=== PATIENT | female | born 1990 | race African-American/Black ===

== ENCOUNTER 2018-09-30 14:22 | Emergency (ER) | payer MEDICAID ==
[~2018-09-30] VITALS: Ht 167.6 cm; Wt 72.6 kg
[2018-09-30 14:54] LABS: MICROSCOPIC INDICATED
[2018-09-30 15:02] LABS: CULTURE INDICATED? NO
[2018-09-30 15:04] LABS: BASOPHILS % (AUTO) 1 % (0-1); EOSINOPHILS # (AUTO) 0.13 x10^3/uL (0-0.4); EOSINOPHILS % (AUTO) 1 % (1-7); LYMPHOCYTES # (AUTO) 2.23 x10^3/uL (1-3.4); LYMPHOCYTES % (AUTO) 20 % (22-44); MD NO; MEAN CORPUSCULAR HEMOGLOBIN 32.3 pg (27.0-34.8); MEAN CORPUSCULAR HGB CONC 34.3 g/dL (32.4-35.8); MEAN CORPUSCULAR VOLUME 94.3 fL (80-100); MEAN PLATELET VOLUME 7.7 fL (7.4-10.4); MONOCYTES # (AUTO) 0.59 x10^3/uL (0.2-0.8); MONOCYTES % (AUTO) 5 % (2-9); NEUTROPHILS % (AUTO) 72 % (42-75); PLATELET COUNT 308 x10^3/uL (130-400); RED BLOOD COUNT 3.98 x10^6/uL (3.82-5.3); RED CELL DISTRIBUTION WIDTH 13.9 % (9.6-15.2)
[2018-09-30 15:10] LABS: ALANINE AMINOTRANSFERASE 15 U/L (12-78); ALBUMIN 3.6 g/dL (3.4-5.0); ANION GAP 8 mmol/L (5-15); CALCIUM 8.8 mg/dL (8.5-10.1); CHLORIDE 107 mmol/L (98-107); CREATININE 0.78 mg/dL (0.55-1.02)
[2018-09-30 15:32] LABS: ALKALINE PHOSPHATASE 56 U/L (45-117); BILIRUBIN,TOTAL 0.3 mg/dL (0.2-1.0); TOTAL PROTEIN 8.1 g/dL (6.4-8.2)
[2018-09-30 16:30] VITALS: BP 114/63
[2018-09-30] MEDS ORDERED: PNV11TAB PO (16:55)
== END 2018-09-30 17:49 | disposition home or self-care (01) ==
LOC: ED 15:28
DX: O26.891 Other specified pregnancy related conditions, first trimester (principal); R10.30 Lower abdominal pain, unspecified; Z3A.01 Less than 8 weeks gestation of pregnancy
CPT/HCPCS: 36415; 76801; 80053; 81001; 84702; 85025; 99284

== ENCOUNTER 2018-10-05 23:26 | Emergency (ER) | payer MEDICAID ==
[~2018-10-05] VITALS: Ht 167.6 cm; Wt 71.7 kg
[~2018-10-05 23:26] MED LIST: PNV11TAB PO
[2018-10-06 00:04] LABS: CULTURE INDICATED? YES; MICROSCOPIC AUTO
[2018-10-06 00:22] LABS: BASOPHILS # (AUTO) 0.03 x10^3/uL (0-0.1); BASOPHILS % (AUTO) 0 % (0-1); EOSINOPHILS # (AUTO) 0.16 x10^3/uL (0-0.4); EOSINOPHILS % (AUTO) 2 % (1-7); LYMPHOCYTES # (AUTO) 3.13 x10^3/uL (1-3.4); LYMPHOCYTES % (AUTO) 29 % (22-44); MEAN CORPUSCULAR HEMOGLOBIN 32.3 pg (27.0-34.8); MEAN CORPUSCULAR VOLUME 95.2 fL (80-100); MEAN PLATELET VOLUME 7.7 fL (7.4-10.4); MONOCYTES # (AUTO) 0.73 x10^3/uL (0.2-0.8); MONOCYTES % (AUTO) 7 % (2-9); NEUTROPHILS # (AUTO) 6.95 x10^3/uL (1.8-6.8); NEUTROPHILS % (AUTO) 63 % (42-75); PLATELET COUNT 313 x10^3/uL (130-400); RED BLOOD COUNT 3.96 x10^6/uL (3.82-5.3); RED CELL DISTRIBUTION WIDTH 14.2 % (9.6-15.2)
[2018-10-06 00:33] LABS: MD NO
[2018-10-06 01:51] VITALS: BP 107/69
== END 2018-10-06 02:06 | disposition home or self-care (01) ==
LOC: ED 23:51
DX: O20.0 Threatened abortion (principal)
CPT/HCPCS: 36415; 76801; 81001; 84702; 85025; 86901; 87077; 87086; 87186; 99284

== ENCOUNTER 2018-10-20 09:43 | Emergency (ER) | payer MEDICAID ==
[~2018-10-20] VITALS: Ht 167.6 cm; Wt 72.0 kg
--- NOTE | 2018-10-20 10:13 | NUR ---
PT RESTING IN BED. PT STATES "HAVING LOWER ABD PAIN AND PELVIC PAIN." 8 WEEKS PREG. RESPS EVEN AND UNLABORED AND APPEARS CALM.
[2018-10-20 11:14] VITALS: BP 106/77
[2018-10-20 11:29] LABS: CULTURE INDICATED? YES; MICROSCOPIC INDICATED
== END 2018-10-20 11:58 | disposition home or self-care (01) ==
LOC: ED 10:05
DX: O20.0 Threatened abortion (principal); Z3A.08 8 weeks gestation of pregnancy
CPT/HCPCS: 81001; 87086; 99284

== ENCOUNTER 2018-11-21 10:59 | Emergency (ER) | payer MEDICAID ==
[~2018-11-21] VITALS: Ht 167.6 cm; Wt 71.4 kg
--- NOTE | 2018-11-21 11:11 | NUR ---
PT WAS AMBULATORY TO BR W/OUT INCIDENT; GAIT STEADY; VOIDED SPECIMEN PROVIDED. PAYAM LOPEZ BS FOR EXAM. PT CURRENTLY 14 WK , C/O RLQ X 2 DAYS. DENIES VAG BLEEDING/DISCHARGE, DECREASED NAUSEA. LMP: 08/24/18 EDC: 05/31/19 AB5. LAST ORAL INTAKE: APPROX 0900 TODAY.
[2018-11-21] MEDS ORDERED: PRENATAL VITAMIN (11:18)
--- NOTE | 2018-11-21 11:39 | NUR ---
PAYAM CAVAZOS AT BS FOR U/S.
[2018-11-21 11:41] LABS: BASOPHILS # (AUTO) 0.05 x10^3/uL (0-0.1); BASOPHILS % (AUTO) 1 % (0-1); EOSINOPHILS # (AUTO) 0.11 x10^3/uL (0-0.4); EOSINOPHILS % (AUTO) 1 % (1-7); LYMPHOCYTES # (AUTO) 1.83 x10^3/uL (1-3.4); LYMPHOCYTES % (AUTO) 20 % (22-44); MD NO; MEAN CORPUSCULAR HGB CONC 34.8 g/dL (32.4-35.8); MEAN PLATELET VOLUME 7.4 fL (7.4-10.4); MONOCYTES # (AUTO) 0.53 x10^3/uL (0.2-0.8); MONOCYTES % (AUTO) 6 % (2-9); NEUTROPHILS # (AUTO) 6.84 x10^3/uL (1.8-6.8); NEUTROPHILS % (AUTO) 73 % (42-75); PLATELET COUNT 279 x10^3/uL (130-400); RED BLOOD COUNT 3.94 x10^6/uL (3.82-5.3); RED CELL DISTRIBUTION WIDTH 14.3 % (9.6-15.2)
[2018-11-21 11:49] LABS: MICROSCOPIC INDICATED
[2018-11-21 11:54] LABS: CULTURE INDICATED? YES
--- NOTE | 2018-11-21 11:55 | NUR ---
DR RIVAS BS FOR U/S EXAM. ACTIVE MOVEMENT NOTED. FHT: [id number]
--- NOTE | 2018-11-21 12:08 | NUR ---
TO U/S PER ADDI
[2018-11-21 12:58] VITALS: BP 116/49
== END 2018-11-21 13:01 | disposition home or self-care (01) ==
LOC: ED 12:50
DX: O26.891 Other specified pregnancy related conditions, first trimester (principal); Z3A.13 13 weeks gestation of pregnancy; R10.32 Left lower quadrant pain
CPT/HCPCS: 36415; 76857; 81001; 84702; 85025; 87086; 99284

== ENCOUNTER 2019-04-23 18:36 | Outpatient (CLI) | payer MEDICAID ==
[~2019-04-23] VITALS: Ht 162.6 cm; Wt 84.0 kg
[2019-04-23 20:31] VITALS: BP 115/72
== END 2019-04-23 21:20 | disposition home or self-care (01) ==
LOC: LDOP 18:36
PROVIDERS: ATTEND Obstetrics & Gynecology
DX: O42.913 Preterm premature rupture of membranes, unspecified as to length of time between rupture and onset of labor, third trimester (principal); Z3A.34 34 weeks gestation of pregnancy
CPT/HCPCS: 81001; 87086; 89060; Q0114

== ENCOUNTER 2019-05-04 12:40 | Observation (INO) | payer MEDICAID ==
[~2019-05-04] VITALS: Ht 162.6 cm; Wt 86.5 kg
[~2019-05-04 12:40] MED LIST changes: +PRENATAL VITAMIN
[2019-05-04 12:49] VITALS: BP 104/63
[2019-05-04] MEDS ORDERED: BETAMETHASONE 6 MG/ML, 5ML IM ONE ×2 (15:30→15:39)
[2019-05-04] MEDS: LACTATED RINGERS 1,000 ML IV SCH ×2 (15:50→22:45)
[2019-05-05] MEDS: LACTATED RINGERS 1,000 ML IV SCH (06:51)
[2019-05-05 07:40] VITALS: BP 114/71
[2019-05-05] MEDS ORDERED: BETAMETHASONE 6 MG/ML, 5ML IM ONE (15:51)
== END 2019-05-05 16:00 | disposition home or self-care (01) ==
LOC: LDOP 12:40 → LDIP 15:40
PROVIDERS: ADMIT Obstetrics & Gynecology; ATTEND Obstetrics & Gynecology
DX: O36.8130 Decreased fetal movements, third trimester, not applicable or unspecified (principal); Z3A.36 36 weeks gestation of pregnancy
CPT/HCPCS: 36415; 59025; 76819; 84112; 86850; 86900; 87081; 87147; 96372; 99211; G0378; J0702; J7120; 96361; G0463

== ENCOUNTER 2019-05-07 11:14 | Observation (INO) | payer MEDICAID ==
[~2019-05-07] VITALS: Ht 162.6 cm; Wt 88.2 kg
[2019-05-07 11:26] VITALS: BP 110/58
== END 2019-05-07 17:20 | disposition home or self-care (01) ==
LOC: LDOP 11:14 → LDIP 13:25
PROVIDERS: ADMIT Obstetrics & Gynecology; ATTEND Obstetrics & Gynecology
DX: O62.9 Abnormality of forces of labor, unspecified (principal); Z3A.36 36 weeks gestation of pregnancy
CPT/HCPCS: 59025; 76819; 99211; G0378; G0463

== ENCOUNTER 2019-05-10 10:04 | Outpatient (CLI) | payer MEDICAID ==
[~2019-05-10] VITALS: Ht 162.6 cm; Wt 88.1 kg
[2019-05-10 11:32] VITALS: BP 114/66
== END 2019-05-10 11:54 | disposition home or self-care (01) ==
LOC: LDOP 10:04
PROVIDERS: ATTEND Obstetrics & Gynecology
DX: Z34.93 Encounter for supervision of normal pregnancy, unspecified, third trimester (principal); Z3A.34 34 weeks gestation of pregnancy
CPT/HCPCS: 59025; 76815; 99211; G0463

== ENCOUNTER 2019-05-23 11:08 | Inpatient (IN) | payer MEDICAID ==
[~2019-05-23] VITALS: Ht 162.6 cm; Wt 88.1 kg
[2019-05-23 13:12] LABS: MICROSCOPIC INDICATED
[2019-05-23] MEDS: D5%-LACTATED RINGERS 1,000 ML IV SCH ×2 (14:40→22:40)
[2019-05-23] MEDS ORDERED: OXYTOCIN 30U/ 0.9% NaCL 500ML 500 ML IV ONE (14:40)
[2019-05-23] MEDS ORDERED: OXYTOCIN 30U/ 0.9% NaCL 500ML 500 ML IV PRN ×2 (14:40→17:13)
[2019-05-23] MEDS ORDERED: ONDANSETRON 2MG/ML, 2ML IVPush PRN (15:00)
[2019-05-23] MEDS ORDERED: FENTANYL PF 100 MCG/2ML IV PRN (15:00)
[2019-05-23] MEDS ORDERED: CALCIUM CARBONATE 500 MG TAB.CHEW PO PRN (15:00)
[2019-05-23] MEDS ORDERED: FENTANYL PF 100 MCG/2ML IVPush PRN (15:00)
[2019-05-23] MEDS ORDERED: NEWBORN KIT ONE (15:08)
[2019-05-23] MEDS ORDERED: FENTANYL PF 100 MCG/2ML ONE (15:08)
[2019-05-23] MEDS ORDERED: OXYTOCIN 30U/ 0.9% NaCL 500ML 500 ML ONE ×2 (15:08→20:59)
[2019-05-23] MEDS ORDERED: LIDOCAINE 1%, 20ML ONE (15:08)
[2019-05-23 15:12] LABS: BASOPHILS # (AUTO) 0.07 x10^3/uL (0-0.1); BASOPHILS % (AUTO) 1 % (0-1); EOSINOPHILS # (AUTO) 0.02 x10^3/uL (0-0.4); EOSINOPHILS % (AUTO) 0 % (1-7); LYMPHOCYTES # (AUTO) 1.64 x10^3/uL (1-3.4); LYMPHOCYTES % (AUTO) 15 % (22-44); MD NO; MEAN CORPUSCULAR HEMOGLOBIN 33.2 pg (27.0-34.8); MEAN CORPUSCULAR VOLUME 100.4 fL (80-100); MEAN PLATELET VOLUME 7.7 fL (7.4-10.4); MONOCYTES # (AUTO) 0.36 x10^3/uL (0.2-0.8); MONOCYTES % (AUTO) 3 % (2-9); NEUTROPHILS # (AUTO) 9.11 x10^3/uL (1.8-6.8); NEUTROPHILS % (AUTO) 81 % (42-75); PLATELET COUNT 239 x10^3/uL (130-400); RED BLOOD COUNT 4.14 x10^6/uL (3.82-5.3); RED CELL DISTRIBUTION WIDTH 14.4 % (9.6-15.2)
[2019-05-23] MEDS: LACTATED RINGERS 1,000 ML IV SCH ×4 (15:12→23:35)
[2019-05-23] MEDS ORDERED: FENTANYL PF 500 MCG, BUPIVACAINE/PF 0.5%, 30ML 62.5 ML in SODIUM CHLORIDE 0.9% 177.5 ML EPIDCONT SCH ×2 (15:35→16:00)
[2019-05-23] MEDS ORDERED: LACTATED RINGERS 1,000 ML IVBOLUS PRN (16:00)
[2019-05-23] MEDS ORDERED: EPHEDRINE 50 MG/ML, 1ML IVPush PRN (16:00)
[2019-05-23 17:00] VITALS: BP 126/74
[2019-05-23] MEDS: PLEASE ENTER HEIGHT AND WEIGHT MC SCH (17:30)
[2019-05-23] MEDS: OXYTOCIN 30U/ 0.9% NaCL 500ML 500 ML IV SCH (20:23)
[2019-05-23] MEDS ORDERED: ONDANSETRON 2MG/ML, 2ML IV PRN (20:30)
[2019-05-23] MEDS ORDERED: DOCUSATE 100 MG CAPSULE PO PRN (20:30)
[2019-05-23] MEDS ORDERED: MISOPROSTOL 200 MCG TABLET PR PRN (20:30)
[2019-05-23] MEDS ORDERED: OXYcodone/APAP 5/325MG TABLET ONE (20:59)
[2019-05-23] MEDS ORDERED: IBUPROFEN 600 MG TABLET ONE (20:59)
[2019-05-23] MEDS: OXYcodone/APAP 5/325MG TABLET PO PRN (22:19)
[2019-05-23] MEDS: IBUPROFEN 600 MG TABLET PO PRN (22:19)
[2019-05-23 23:00] VITALS: BP 115/78
[2019-05-24] MEDS: PLEASE ENTER HEIGHT AND WEIGHT MC SCH (01:30)
[2019-05-24] MEDS: OXYcodone/APAP 5/325MG TABLET PO PRN ×5 (02:04→19:37)
[2019-05-24 04:30] VITALS: BP 119/78
[2019-05-24 05:35] LABS: BASOPHILS # (AUTO) 0.09 x10^3/uL (0-0.1); BASOPHILS % (AUTO) 1 % (0-1); EOSINOPHILS # (AUTO) 0.12 x10^3/uL (0-0.4); EOSINOPHILS % (AUTO) 1 % (1-7); LYMPHOCYTES # (AUTO) 1.91 x10^3/uL (1-3.4); LYMPHOCYTES % (AUTO) 16 % (22-44); MD NO; MEAN CORPUSCULAR HEMOGLOBIN 33.9 pg (27.0-34.8); MEAN CORPUSCULAR HGB CONC 33.7 g/dL (32.4-35.8); MEAN CORPUSCULAR VOLUME 100.4 fL (80-100); MEAN PLATELET VOLUME 7.6 fL (7.4-10.4); MONOCYTES # (AUTO) 0.55 x10^3/uL (0.2-0.8); MONOCYTES % (AUTO) 5 % (2-9); NEUTROPHILS # (AUTO) 9.05 x10^3/uL (1.8-6.8); NEUTROPHILS % (AUTO) 77 % (42-75); PLATELET COUNT 205 x10^3/uL (130-400); RED BLOOD COUNT 3.69 x10^6/uL (3.82-5.3); RED CELL DISTRIBUTION WIDTH 14.4 % (9.6-15.2)
[2019-05-24] MEDS: IBUPROFEN 600 MG TABLET PO PRN ×2 (06:08→15:41)
[2019-05-24] MEDS: OXYTOCIN 30U/ 0.9% NaCL 500ML 500 ML IV SCH ×2 (06:23→16:23)
[2019-05-24] MEDS: LACTATED RINGERS 1,000 ML IV SCH (06:40)
[2019-05-24] MEDS: D5%-LACTATED RINGERS 1,000 ML IV SCH (06:40)
[2019-05-24 07:25] VITALS: BP 112/77
[2019-05-24] MEDS ORDERED: PRENATAL VIT/IRON/FA 1 EACH TABLET PO SCH (09:00)
[2019-05-24 12:20] VITALS: BP 113/67
[2019-05-24 16:20] VITALS: BP 116/77
[2019-05-24] MEDS ORDERED: IBUP-1222 PO (18:02)
[2019-05-24 20:42] VITALS: BP 117/65
== END 2019-05-24 21:18 | disposition home or self-care (01) | DRG 807 ==
LOC: LDOP 11:08 → LDIP 14:40 → UNDOADMIN 14:46 → LDIP 14:46 → 2NW 22:25
PROVIDERS: ADMIT Obstetrics & Gynecology; ATTEND Obstetrics & Gynecology
PROC: 10E0XZZ Delivery of Products of Conception, External Approach (ICD-10-PCS; principal; 2019-05-23)
DX: O36.8130 Decreased fetal movements, third trimester, not applicable or unspecified (principal); Z37.0 Single live birth; Z3A.38 38 weeks gestation of pregnancy; O77.0 Labor and delivery complicated by meconium in amniotic fluid
CPT/HCPCS: 36415; J3490; S0020; 76815; 81001; 85025; 86850; 86900; G0378; J3010; J2590; J7050; J7120

== ENCOUNTER 2021-03-30 13:47 | Emergency (ER) | payer MEDICAID ==
[~2021-03-30] VITALS: Ht 165.1 cm; Wt 80.0 kg
[~2021-03-30 13:47] MED LIST changes: +IBUP-1222 PO
[2021-03-30 14:26] LABS: BASOPHILS % (AUTO) 1 % (0-1); EOSINOPHILS % (AUTO) 1 % (1-7); LYMPHOCYTES % (AUTO) 26 % (22-44); MEAN CORPUSCULAR HEMOGLOBIN 24.5 pg (27.0-34.8); MEAN CORPUSCULAR HGB CONC 32.6 g/dL (32.4-35.8); MONOCYTES % (AUTO) 6 % (2-9); NEUTROPHILS % (AUTO) 66 % (42-75); PLATELET COUNT 389 x10^3/uL (130-400); RED CELL DISTRIBUTION WIDTH 21.8 % (9.6-15.2)
[2021-03-30 14:36] LABS: ALBUMIN 3.3 g/dL (3.4-5.0); ANION GAP 10 mmol/L (5-15); CALCIUM 8.6 mg/dL (8.5-10.1); CHLORIDE 104 mmol/L (98-107); CREATININE 0.64 mg/dL (0.55-1.02)
--- NOTE | 2021-03-30 14:37 | NUR ---
INFORMATION SECURITY CONSULTANT: PT IN U/S AT THIS TIME, CONTACTED [employer] TO ROOM IN ROOM 40 WHEN IMAGING COMPLETED.
[2021-03-30 15:19] VITALS: BP 146/87
--- NOTE | 2021-03-30 15:20 | NUR ---
PT RESTING IN [facility]. NAD. UP FOR RECHECK
== END 2021-03-30 16:01 | disposition home or self-care (01) ==
LOC: ED 15:55
DX: O9A.211 Injury, poisoning and certain other consequences of external causes complicating pregnancy, first trimester (principal); O46.91 Antepartum hemorrhage, unspecified, first trimester; Z3A.01 Less than 8 weeks gestation of pregnancy; W01.0XXA Fall on same level from slipping, tripping and stumbling without subsequent striking against object, initial encounter; Y93.89 Activity, other specified; Y92.009 Unspecified place in unspecified non-institutional (private) residence as the place of occurrence of the external cause; Y99.8 Other external cause status
CPT/HCPCS: 36415; 76801; 80048; 82040; 84702; 85025; 86901; 99284